=== PATIENT | male | born 1960 | race African-American/Black ===

== ENCOUNTER 2024-01-19 13:08 | Inpatient (IN) | payer MEDICARE ==
[2024-01-19 17:59] VITALS: BP 108/65; RESP 18; TEMP 98.4; O2SAT 98
[2024-01-19 19:30] VITALS: BP 111/64; PULSE 61; RESP 21; TEMP 98.3; O2SAT 94
[2024-01-19] MEDS: SODIUM CHLORIDE 0.9% 1000ML 1,000 ML IV SCH (20:18)
[2024-01-19 20:37] LABS: BASOPHILS % 0.3 % (0.0-1.0); EOSINOPHILS # (AUTO) 0.5 (0.0-0.4); EOSINOPHILS % 5.2 % (0.0-6.0); HEMATOCRIT 27.3 % (38.2-49.6); HEMOGLOBIN 9.5 g/dL (14.0-18.0); LYMPHOCYTES % 10.4 % (18.0-39.1); MEAN CORPUSCULAR HEMOGLOBIN 28.9 pg (28-32); MEAN CORPUSCULAR HGB CONC 34.8 g/dL (31-35); MONOCYTES # (AUTO) 0.4 (0.2-0.8); MONOCYTES % 4.5 % (4.4-11.3); NEUTROPHILS # (AUTO) 7.6 (2.1-6.9); NEUTROPHILS % 79.1 % (38.7-80.0); PLATELET COUNT 285 x10e3/uL (140-360); RED BLOOD COUNT 3.29 x10e6/uL (4.3-5.7); RED CELL DISTRIBUTION WIDTH 12.1 % (11.7-14.4); WHITE BLOOD COUNT 9.56 x10e3/uL (4.8-10.8)
[2024-01-19 20:52] LABS: ANION GAP 11.3 mmol/L (8-16); CALCIUM 7.6 mg/dL (8.4-10.2); CREATININE, SERUM 1.14 mg/dL (0.72-1.25); POTASSIUM 4.3 mmol/L (3.5-5.1)
[2024-01-19 23:54] VITALS: BP 111/64; PULSE 61; RESP 21; TEMP 98.3; O2SAT 94
[2024-01-20] VITALS (9 sets, daily range): BP systolic 92–113; BP diastolic 48–69; PULSE 56–67; RESP 14–21; TEMP 98.1–98.5; O2SAT 93–97
[2024-01-20] MEDS: BENZONATATE 100 MG CAP PO PRN (00:10)
[2024-01-20 01:49] LABS: % IRON SATURATION 23 % (15-50); IRON 41 ug/dL (65-175); TOTAL IRON BINDING CAPACITY 175 ug/dL (261-478); TRANSFERRIN 125 mg/dL (174-364)
[2024-01-20 04:47] LABS: FOLATE 3.5 ng/mL (7.0-15.4)
[2024-01-20 05:02] LABS: BASOPHILS % 0.1 % (0.0-1.0); EOSINOPHILS # (AUTO) 0.8 (0.0-0.4); EOSINOPHILS % 9.7 % (0.0-6.0); HEMATOCRIT 28.6 % (38.2-49.6); HEMOGLOBIN 9.6 g/dL (14.0-18.0); LYMPHOCYTES # (AUTO) 1.3 (1.0-3.2); LYMPHOCYTES % 16.7 % (18.0-39.1); MEAN CORPUSCULAR HEMOGLOBIN 28.6 pg (28-32); MEAN CORPUSCULAR HGB CONC 33.6 g/dL (31-35); MEAN CORPUSCULAR VOLUME 85.1 fL (81-99); MONOCYTES # (AUTO) 0.5 (0.2-0.8); MONOCYTES % 6.5 % (4.4-11.3); NEUTROPHILS # (AUTO) 5.2 (2.1-6.9); NEUTROPHILS % 66.1 % (38.7-80.0); PLATELET COUNT 281 x10e3/uL (140-360); RED BLOOD COUNT 3.36 x10e6/uL (4.3-5.7); WHITE BLOOD COUNT 7.85 x10e3/uL (4.8-10.8)
[2024-01-20 05:25] LABS: ANION GAP 11.2 mmol/L (8-16); CALCIUM 7.7 mg/dL (8.4-10.2); CREATININE, SERUM 1.2 mg/dL (0.72-1.25); POTASSIUM 4.2 mmol/L (3.5-5.1)
[2024-01-20] MEDS: FOLIC ACID/CYANOCOB/PYRIDOXINE TAB PO SCH (09:55)
[2024-01-20] MEDS: CYANOCOBALAMIN INJ 1,000 MCG/ML VIAL IM SCH (09:55)
[2024-01-20] MEDS: SODIUM FERRIC GLUCONATE COMPLX 125 MG in SODIUM CHLORIDE 0.9% 100 ML IV SCH (09:56)
[2024-01-20] MEDS ORDERED: PROPOFOL IV EMULSION 10 MG/ML 20 ML VIAL ONE (17:28)
[2024-01-20] MEDS ORDERED: SEVOFLURANE INHAL SOLN 250 ML PEN BTL ONE (17:28)
[2024-01-20] MEDS ORDERED: LIDOCAINE HCL 2% LOCAL INJ 5 ML SDV VIAL INJ ONE (17:28)
[2024-01-20] MEDS ORDERED: ONDANSETRON HCL INJ 2MG/ML 2ML 2 MG/ML VIAL ONE (17:28)
[2024-01-20] MEDS: FLUCONAZOLE 200 MG/100 ML 100 ML IV SCH (17:47)
[2024-01-20] MEDS: SODIUM BICARBONATE 650 MG TAB PO SCH (20:49)
[2024-01-21] VITALS (7 sets, daily range): BP systolic 97–117; BP diastolic 61–69; PULSE 51–69; RESP 16–18; TEMP 97.8–99; O2SAT 94–98
[2024-01-21 05:22] LABS: BASOPHILS % 0.3 % (0.0-1.0); EOSINOPHILS # (AUTO) 0.8 (0.0-0.4); EOSINOPHILS % 12.4 % (0.0-6.0); HEMATOCRIT 29.2 % (38.2-49.6); HEMOGLOBIN 10.2 g/dL (14.0-18.0); LYMPHOCYTES # (AUTO) 1.2 (1.0-3.2); LYMPHOCYTES % 17.4 % (18.0-39.1); MEAN CORPUSCULAR HEMOGLOBIN 28.8 pg (28-32); MEAN CORPUSCULAR HGB CONC 34.9 g/dL (31-35); MEAN CORPUSCULAR VOLUME 82.5 fL (81-99); MONOCYTES # (AUTO) 0.5 (0.2-0.8); MONOCYTES % 7.6 % (4.4-11.3); NEUTROPHILS # (AUTO) 4.1 (2.1-6.9); NEUTROPHILS % 61.6 % (38.7-80.0); PLATELET COUNT 281 x10e3/uL (140-360); RED BLOOD COUNT 3.54 x10e6/uL (4.3-5.7); RED CELL DISTRIBUTION WIDTH 12.1 % (11.7-14.4); WHITE BLOOD COUNT 6.71 x10e3/uL (4.8-10.8)
[2024-01-21 05:42] LABS: ANION GAP 9.8 mmol/L (8-16); CALCIUM 7.4 mg/dL (8.4-10.2); CREATININE, SERUM 1.12 mg/dL (0.72-1.25); POTASSIUM 3.8 mmol/L (3.5-5.1)
[2024-01-21] MEDS: SODIUM BICARBONATE 650 MG TAB PO SCH (08:54)
[2024-01-21] MEDS ORDERED: TRIMETHOPRIM/SULFAMETHOXAZOLE 160-800 MG TAB PO SCH (09:00)
[2024-01-21] MEDS: GUAIFENESIN/CODEINE 5 ML LIQD PO PRN (14:29)
[2024-01-22] VITALS: BP 116/63; PULSE 63; RESP 18; TEMP 98.9; O2SAT 97
[2024-01-22 04:00] VITALS: BP 108/62; PULSE 66; RESP 18; TEMP 98.7; O2SAT 98
[2024-01-22 07:48] VITALS: BP 92/53; PULSE 59; RESP 16; TEMP 98.2; O2SAT 100
[2024-01-22 08:00] VITALS: BP 92/53; PULSE 59; RESP 16; TEMP 98.2; O2SAT 100
[2024-01-22] MEDS ORDERED: PANTOPRAZOLE SO40 MG PO (09:40)
[2024-01-22] MEDS ORDERED: FERROUS SULFAT325 MG PO (09:40)
[2024-01-22] MEDS ORDERED: Folic Acid/Cyanocob/Pyridoxine PO (09:40)
[2024-01-22] MEDS ORDERED: FLUCONAZOLE100 MG PO (09:40)
[2024-01-22] MEDS ORDERED: VITAMIN B-121000 MCG PO (09:40)
[2024-01-22 09:55] VITALS: BP 112/64; PULSE 67
[2024-01-22 12:04] VITALS: BP 106/72; PULSE 77; RESP 16; TEMP 97.9; O2SAT 97
[2024-01-23 15:14] LABS: % CD 4 POSITIVE LYMPHOCYTES 1.1 % (30.8-58.5); BASOPHILS % 0 % (Not Estab.); CD4 HELPER ABSOLUTE COUNT 18 /uL (359-1519); EOSINOPHILS, ABSOLUTE 0.6 x10E3/uL (0.0-0.4); HEMOGLOBIN 9.3 g/dL (13.0-17.7); LYMPHOCYTES % 25 % (Not Estab.); LYMPHOCYTES, ABSOLUTE 1.6 x10E3/uL (0.7-3.1); MCHC 32.1 g/dL (31.5-35.7); MCV 88 fL (79-97); PLATELETS 237 x10E3/uL (150-450); RBC 3.28 x10E6/uL (4.14-5.80); RDW 12.8 % (11.6-15.4)
[2024-01-23 15:46] LABS: IMMATURE GRANULOCYTES, ABS 0.1 x10E3/uL (0.0-0.1)
== END 2024-01-22 12:55 | disposition home or self-care (01) | DRG 380 ==
LOC: MED/SURG2 17:26
PROVIDERS: ADMIT Internal Medicine; ATTEND Internal Medicine
PROC: 0DB78ZX Excision of Stomach, Pylorus, Via Natural or Artificial Opening Endoscopic, Diagnostic (ICD-10-PCS; 2024-01-20)
PROC: 0DB98ZX Excision of Duodenum, Via Natural or Artificial Opening Endoscopic, Diagnostic (ICD-10-PCS; 2024-01-20)
PROC: 0DD58ZX Extraction of Esophagus, Via Natural or Artificial Opening Endoscopic, Diagnostic (ICD-10-PCS; principal; 2024-01-20 15:00)
PROC: 0DB68ZX Excision of Stomach, Via Natural or Artificial Opening Endoscopic, Diagnostic (ICD-10-PCS; 2024-01-20 15:00)
DX: K22.11 Ulcer of esophagus with bleeding (principal); E43 Unspecified severe protein-calorie malnutrition; B20 Human immunodeficiency virus [HIV] disease; E87.20 Acidosis, unspecified; J44.1 Chronic obstructive pulmonary disease with (acute) exacerbation; D62 Acute posthemorrhagic anemia; Z68.1 Body mass index [BMI] 19.9 or less, adult; K29.71 Gastritis, unspecified, with bleeding; I95.89 Other hypotension; K31.7 Polyp of stomach and duodenum; K44.9 Diaphragmatic hernia without obstruction or gangrene; I10 Essential (primary) hypertension; Z91.128 Patient's intentional underdosing of medication regimen for other reason; Z88.1 Allergy status to other antibiotic agents
CPT/HCPCS: 36415; 43235; 43239; 80048; 82607; 82746; 83540; 84466; 85025; 85045; 86361; 87106; 87205; 87536; 88305; 88342; 94799; J1450; J2001; J2405; J2470; J2916; J3420; J7030; J7050